=== PATIENT | male | born 1960 | race African-American/Black ===

== ENCOUNTER 2021-05-05 21:30 | Observation (INO) | payer SELFPAY ==
[2021-05-05 22:08] LABS: #Basophils 0.1 thou/uL (0.0-0.2); #Eosinphils 0.3 thou/uL (0.0-0.7); #Lymphocytes 1.3 thou/uL (1.20-3.40); #Monocytes 1.1 thou/uL (0.11-0.59); #Neutrophils 7.5 thou/uL (1.40-6.50); %Basophils 0.8 % (0.0-1.0); %Eosinophils 2.9 % (0.0-10.0); %Lymphocytes 12.5 % (21.0-51.0); %Monocytes 10.7 % (0.0-10.0); %Neutrophils 73.2 % (42.0-75.0); Hemoglobin 12.8 g/dL (14.0-18.0); Mean Corpuscular HGB CONC 32.6 g/dL (32.0-36.0); Mean Corpuscular Hemoglobin 33.5 pg (27.0-31.0); Mean Platelet Volume 6.1 fL (7.4-10.4); Platelet Count 519 thou/uL (130-400); RBC Distribution Width 11.2 % (11.5-14.5); Red Blood Cell (RBC) Count 3.82 mill/uL (4.70-6.10); White Blood Cell (WBC) Count 10.2 thou/uL (4.8-10.8)
[2021-05-05 22:33] LABS: ALT (SGPT) 15 U/L (8-55); AST (SGOT) 19 U/L (5-34); Albumin 3.9 g/dL (3.4-4.8); Alkaline Phosphatase 68 U/L (40-110); Anion Gap 10 mmol/L (10-20); BUN (Urea Nitrogen) 8 mg/dL (8.4-25.7); Bilirubin, Total 0.6 mg/dL (0.2-1.2); Calc. Creatinine Clearance 0 mL/min (70-130); Calcium 10.1 mg/dL (7.8-10.44); Carbon Dioxide 31 mmol/L (23-31); Chloride 99 mmol/L (98-107); Globulin 3.9 g/dL (2.4-3.5); Glucose 102 mg/dL (80-115); Potassium 4.2 mmol/L (3.5-5.1); Protein, Total 7.8 g/dL (5.8-8.1); Sodium 136 mmol/L (136-145)
== END 2021-05-05 23:24 | disposition home or self-care (01) ==
LOC: ERS 21:30 → SURG A 23:06 → ERHOLD 23:12
PROVIDERS: ADMIT Specialist; ATTEND Specialist
DX: S27.1XXA Traumatic hemothorax, initial encounter (principal); F17.210 Nicotine dependence, cigarettes, uncomplicated; F17.220 Nicotine dependence, chewing tobacco, uncomplicated; W19.XXXA Unspecified fall, initial encounter
CPT/HCPCS: 36415; 71045; 80053; 85025; 85610; 85730

== ENCOUNTER 2021-07-03 08:36 | Outpatient (CLI) | payer BC, OTHER | END 2021-07-03 08:37 | disposition home or self-care (01) | LOC: BICRAD 08:36 | PROVIDERS: ATTEND Neurological Surgery | DX: M84.48XD Pathological fracture, other site, subsequent encounter for fracture with routine healing (principal) | CPT/HCPCS: 72072 ==